=== PATIENT | male | born 1975 | race Hispanic/Latino ===

== ENCOUNTER 2018-07-09 12:40 | Emergency (ER) | payer MEDICAID, OTHER ==
[2018-07-09 12:55] VITALS: RESP 20; TEMP 97.5; O2SAT 97
[2018-07-09 13:23] VITALS: BP 100/56; PULSE 64
--- NOTE | 2018-07-09 13:30 | C.PDOC ---
History Of Present Illness 43 y/o male pt presents to the ER c/o anterior chest wall discomfort. Pt had a hx of narcotic abuse but claims he no longer using narcotics. Pt denies heavy lifting and falls. Time Seen by Provider: 07/09/18 13:18 Chief Complaint (Nursing): Chest Pain History Per: Patient History/Exam Limitations: no limitations Onset/Duration Of Symptoms: Days Current Symptoms Are (Timing): Still Present Past Medical History Reviewed: Historical Data, Nursing Documentation, Vital Signs Vital Signs: Last Vital Signs Temp 97.5 F L 07/09/18 12:51 Pulse 64 07/09/18 13:10 Resp 20 07/09/18 12:51 BP 100/56 L 07/09/18 13:10 Pulse Ox 97 07/09/18 12:51 - Medical History PMH: Depression, Post Traumatic Stress Disorder - [facility] Procedures DETOXIFICATION SERVICES FOR SUBSTANCE ABUSE TREATMENT (10/21/15) GROUP SYSTEM ADMINISTRATION ADVISOR FOR SUBSTANCE ABUSE TREATMENT, PSYCHOEDUCATION (10/21/15) Family History: States: Unknown Family Hx - Social History Hx Tobacco Use: Yes Hx Alcohol Use: No Hx Substance Use: Yes - Immunization History Hx Tetanus Toxoid Vaccination: No Hx Influenza Vaccination: No Hx Pneumococcal Vaccination: No Review Of Systems Except As Marked, All Systems Reviewed And Found Negative. Constitutional: Negative for: Other (heavy lifting or fall ) Cardiovascular: Positive for: Other (anterior chest wall discomfort ) Physical Exam - Physical Exam Appears: Non-toxic, No Acute Distress Skin: Warm, Dry Head: Normacephalic Eye(s): bilateral: Normal Inspection Nose: Normal Oral Mucosa: Moist Throat: Normal Chest: Symmetrical, No Deformity, Tenderness (digitally reproducible discomfort in b/l superior parasternal ) Cardiovascular: Rhythm Regular, No Murmur Respiratory: Normal Breath Sounds, No Rales, No Rhonchi, No Wheezing Gastrointestinal/Abdominal: Soft, No Tenderness Neurological/Psych: Oriented x3, Normal Speech, Normal Cognition ED Course And Treatment ECG: Interpreted By Me ECG Rhythm: Sinus Rhythm ECG Interpretation: Normal Rate From EC O2 Sat by Pulse Oximetry: 97 (RA) Pulse Ox Interpretation: Normal Medical Decision Making Medical Decision Making: Plans: -- EKG -- ibuprofen digitally and positionally reproducable @ b/l parasternal boarder normal hear/lung normal VS c/w costochondritis Disposition Doctor Will See Patient In The: Office Counseled Patient/Family Regarding: Studies Performed, Diagnosis - Disposition Referrals: [facility] [Outside] [facility] [Outside] [facility] [Outside] Disposition: HOME/ ROUTINE Disposition Time: 13:30 Condition: GOOD Additional Instructions: motrin 400-600 every 6 hours as needed for anterior chest wall pain ice packs to the area 1/2 hour per hour as needed no heavy lifting for 1 week Instructions: Costochondritis Forms: [facility] (Scottish) - Clinical Impression Clinical Impression: Chest wall discomfort - Scribe Statement The provider has reviewed the documentation as recorded by the Scribe Rice Do Provider Attestation: All medical record entries made by the Scribe were at my direction and perso jorge dictated by me. I have reviewed the chart and agree that the record accurately reflects my personal performance of the history, physical exam, medical decision making, and the department course for this patient. I have also personally directed, reviewed, and agree with the discharge instructions and disposition.
== END 2018-07-09 13:50 | disposition home or self-care (01) ==
LOC: C.ER 12:40
DX: R07.89 Other chest pain (principal); Z72.0 Tobacco use

== ENCOUNTER 2018-07-28 00:47 | Inpatient (IN) | payer MEDICAID ==
--- NOTE | 2018-07-28 01:49 | C.PDOC ---
History Of Present Illness Patient states that he stopped his meds about 3 weeks ago. He tried to kill himself by hanging himself unde a pipe in the basement, but the pipe broke. the upstairs neighbor heard the noise and water and found him and calld ems. Pt states that he was also clean of drugs for 2 years and 11 days , but relapsed and took 2 percocets . Pleasant, cooperative Time Seen by Provider: 07/28/18 01:49 Chief Complaint (Nursing): Psychiatric Evaluation History Per: Patient History/Exam Limitations: no limitations Onset/Duration Of Symptoms: Hrs Current Symptoms Are (Timing): Still Present Suicide/Self Injury Attempted (Context): Other (attempting to hang himself) Modifying Factor(s): None Severity: Severe Pain Scale Rating Of: 10 Associated Symptoms: Suicidal Plan Involuntary Hold By: None Recent travel outside of the [place]: No Additional History Per: Patient Past Medical History Reviewed: Historical Data, Nursing Documentation, Vital Signs Vital Signs: Last Vital Signs Temp 97.6 F 07/28/18 01:26 Pulse 90 07/28/18 01:26 Resp 18 07/28/18 01:26 BP 111/72 07/28/18 01:26 Pulse Ox 96 07/28/18 01:26 - Medical History PMH: Depression, Post Traumatic Stress Disorder Denies: HIV, HTN, Chronic Kidney Disease, Seizures, Sexually Transmitted Disease - [facility] Procedures DETOXIFICATION SERVICES FOR SUBSTANCE ABUSE TREATMENT (10/21/15) GROUP FORESTRY AIDE FOR SUBSTANCE ABUSE TREATMENT, PSYCHOEDUCATION (10/21/15) Family History: States: No Known Family Hx - Social History Hx Tobacco Use: Yes Hx Alcohol Use: No Hx Substance Use: Yes - Immunization History Hx Tetanus Toxoid Vaccination: No Hx Influenza Vaccination: No Hx Pneumococcal Vaccination: No Review Of Systems Constitutional: Negative for: Fever, Chills Eyes: Negative for: Redness ENT: Negative for: Throat Pain Cardiovascular: Negative for: Chest Pain Respiratory: Negative for: Shortness of Breath Gastrointestinal: Negative for: Nausea, Vomiting, Abdominal Pain Genitourinary: Negative for: Dysuria Musculoskeletal: Negative for: Back Pain Skin: Negative for: Rash Neurological: Negative for: Weakness Psych: Positive for: Anxiety, Depression, Suicidal ideation Physical Exam - Physical Exam Appears: Non-toxic Skin: Warm, Dry Head: Normacephalic Eye(s): bilateral: Normal Inspection Oral Mucosa: Moist Tongue: Normal Appearing Lips: Normal Appearing Throat: No Erythema, No Exudate, No Drooling Neck: Trachea Midline, No Midline Cervical Tenderness, No Paracervical Tenderness, No Step Off Deformity, Supple Chest: Symmetrical Cardiovascular: Rhythm Regular Respiratory: No Rales, No Rhonchi, No Wheezing Gastrointestinal/Abdominal: Soft, No Tenderness, No Distention, No Guarding Back: No CVA Tenderness Extremity: No Tenderness Extremity: Bilateral: Atraumatic Neurological/Psych: Oriented x3 Gait: Steady ED Course And Treatment - Laboratory Results Result Diagrams: 07/28/18 02:22 03 02:22 O2 Sat by Pulse Oximetry: 96 [address]position Discuss[address] Dr.: Tano Ag Comment: accepted the pt on his service and took over the care at 4:18 AM Doctor Will See Patient In The: Hospital Counseled Patient/Family Regarding: Studies Performed, Diagnosis - Disposition Disposition: HOSPITALIZED Disposition Time: 01:49 Condition: FAIR Forms: [facility] ([place] Citizen) - POA Present On Arrival: None - Clinical Impression Clinical Impression: Major depression, Cocaine abuse, Opioid use disorder Decision To Admit - Pt Status Changed To: Hospital Disposition Of: Inpatient - Admit Certification Admit to Inpatient:: After my assessment, the patient will require hospitalization for at least two midnights. This is because of the severity of symptoms shown, intensity of services needed, and/or the medical risk in this patient being treated as an outpatient. - InPatient: Physician Admission Certification: I certify that this patient requires 2 or more midnights of care for the following reason:: After my assessment, the patient will require hospitalization for at least two midnights. This is because of the severity of symptoms shown, intensity of services needed, and/or the medical risk in this patient being treated as an outpatient. - . Bed Request Type: Psychiatry Admitting Physician: Tano Ag Patient Diagnosis: Major depression, Cocaine abuse, Opioid use disorder
[2018-07-28 02:41] LABS: BARBITURATES, UR NEGATIVE (NEGATIVE); BENZODIAZEPINES, UR NEGATIVE (NEGATIVE); PHENCYCLIDINE, UR NEGATIVE (NEGATIVE)
[2018-07-28 02:44] LABS: ALB/GLOB RATIO 1.6 (1.0-2.1); ALBUMIN 4.4 g/dL (3.5-5.0); ALT/SGPT 11 U/L (21-72); AST/SGOT 34 U/L (17-59); BLOOD UREA NITROGEN 12 mg/dL (9-20); CALCIUM 9.6 mg/dl (8.6-10.4); GFR NON-AFRICAN AMERICAN > 60; GRANULAR CAST 64 /lpf (0-1); URINE BACTERIA RARE (<OCC); URINE BILIRUBIN NEGATIVE (NEGATIVE); URINE BLOOD NEGATIVE (NEGATIVE); URINE CLARITY Turbid (Clear); URINE COLOR Amber (YELLOW); URINE GLUCOSE (UA) NORMAL (Normal); URINE HYALINE CAST >20 /lpf (0-2); URINE LEUKOCYTE ESTERASE NEG Leu/uL (Negative); URINE PROTEIN 1+ mg/dL (NEGATIVE)
[2018-07-28 02:48] LABS: BASO # 0.1 K/uL (0.0-0.2); BASO % 0.5 % (0.0-2.0); EOS % 0.2 % (0.0-4.0); HEMOGLOBIN 15.1 g/dL (12.0-18.0); LYMPH # 2.1 K/uL (1.0-4.3); LYMPH % 19.5 % (20.0-40.0); MEAN CELL VOLUME 87.9 fL (80.0-94.0); MEAN CORPUSCULAR HEMOGLOBIN 29.9 pg (27.0-31.0); MEAN PLATELET VOLUME 10.5 fL (7.2-11.7); MONO # 0.9 K/uL (0.0-0.8); MONO % 8.6 % (0.0-10.0); NEUT # 7.6 K/uL (1.8-7.0); NEUT % 71.2 % (50.0-75.0); NRBC % 0.1 % (0.0-2.0); OPIATES, UR POSITIVE (NEGATIVE); RBC 5.05 Mil/uL (4.40-5.90); RED CELL DISTRIBUTION WIDTH 13.7 % (11.5-14.5); WHITE BLOOD COUNT 10.6 K/uL (4.8-10.8)
--- NOTE | 2018-07-28 05:35 | PCM.BM ---
<Doyle Marinelli - Last Filed: 07/28/18 05:32> Treatment Plan Problems - Problems identified on initial assessmt Hopelessness/Helplessness Date Initiated: 07/28/18 Time Initiated: 04:30 Assessment reference: NA Status: Active Ineffective Coping Date Initiated: 07/28/18 Time Initiated: 04:30 Assessment reference: NA Status: Active Treatment assets and liabiliti Patient Assests: adapts well, cooperative, ADL independent, physically healthy, good support system, negotiates basic needs, cognitively intact Patient Liabilities: substance abuse - Milieu Protocol Maintain good personal hygiene: daily Encourage regular showers, daily Remind patient to perform daily oral care, daily Assist patient to perform ADL's Conduct patient checks and document Observation sheet: Q15 minutes Maintain personal safety: every shift Educate patient to report safety concerns to staff, every shift Monitor environment for contraband/sharps Medication safety: Monitor for expected outcome, potential side effects: every shift, Assess barriers to learning: every shift, Assess readiness for medication education: every shift <Jenny Lee - Last Filed: 07/28/18 15:56> Family Contact Family involvement: Patient does not wish Family/SO involvement Family contact: Patient declines to allow family contact at present - Goals for Treatment Patient goals for treatment: "I want go back to my IOP." Discharge/Continuing Care - Education Needs Education Needs: Patient Medication, Patient Diagnosis/Disease Process, Patient Coping Skills, Patient Placement options, Patient Community resources - Discharge Discharge Criteria: Free of Suicidal thoughts, Normal sleep pattern, Ability to care for self, No longer exhibiting s/s of withdrawal, Reduction of target symptoms Discharge to:: Home - Treatment Team Participation Discussed with Family/SO: No Was Patient/Family/SO present at Treatment Team Meeting: Yes
[2018-07-28] MEDS ORDERED: Aluminum Hydroxide/Magnesium Hydroxide Susp (30 mL) PO PRN (15:29)
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
[2018-07-29 08:40] VITALS: O2SAT 96
[2018-07-29] MEDS ORDERED: Influenza Vaccine 60 mcg/0.5 mL SYR (4YR UP) IM ONE (10:00)
--- NOTE | 2018-07-29 18:29 | PCM.PYCHPN ---
Psychiatric Progress Note - Psychiatric Progress Note Patient seen today, length of contact: 15 minutes Patient Chief Complaint: I am feeling a little better. Problems Identified/Issues Discussed: Patient seen, chart reviewed, case discussed with the staff. Issues related to illness and treatment were discussed with the patient and staff. Reported compliance with treatment with no adverse effect. Tolerating treatment very well. Patient reported feeling little better, he denied any suicidal or homicidal ideations. Mood reported as still depressed but less than before. Affect appropriate. Aftercare discussed with the patient. Patient denied any delusions, auditory or visual hallucinations, no suicidal ideations or homicidal ideations at the time of the evaluation. Medical Problems: None reported Diagnostic Results: Reviewed DSM 5 Symptoms Update: Some improvement with treatment Medication Change: No Medical Record Reviewed: Yes Mental Status Examination - Cognitive Function Orientation: Person, Place, Situation, Time Memory: Intact Attention: WNL Concentration: WNL Association: [facility] Fund of Knowledge: [facility] Decription of patient's judgement and insights: Fair - Mood Mood: Depressed - Affect Affect: Depressed - Speech Speech: Appropriate - Formal Thought Process Formal Thought Process: No Impairment Psychotic Thoughts and Behaviors: None - Suicidal Ideation Suicidal Ideation: No - Homicidal Ideation Homicidal Ideation: No Goal/Treatment Plan - Goal/Treatment Plan Need for Continued Stay: Remain at risks for inpatient hospitalization, Discharge may exacerbated symptoms, Severe functional impairment Progress Toward Problem(s) and Goals/Treatment Plan: Patient education. Supportive therapy. CBT for relapse prevention. [facility] for abstinence. Will DC one-to-one observation for safety. We will move the patient to a room closer to nursing station for close observation. Continue treatment as before. Patient wants to go to [facility] for follow-up care after discharge from the hospital. Estimated Date of D/C: 08/05/18 - Smoking Cessation Smoking Cessation Initiated: No
[2018-07-30] MEDS ORDERED: Pneumococcal 23-Valent Vaccine IM ONE (10:30)
--- NOTE | 2018-07-30 23:47 | PCM.PYCHPN ---
Psychiatric Progress Note - Psychiatric Progress Note Patient seen today, length of contact: 15 minutes Patient Chief Complaint: I am feeling a little better. Problems Identified/Issues Discussed: Patient seen, chart reviewed, case discussed with the staff. Issues related to illness and treatment were discussed with the patient and staff. Reported compliance with treatment with no adverse effect. Tolerating treatment very well. Patient reported feeling little better, he denied any suicidal or homicidal ideations. Mood reported as still depressed but less than before. Affect appropriate. Aftercare discussed with the patient. Patient denied any delusions, auditory or visual hallucinations, no suicidal ideations or homicidal ideations at the time of the evaluation. Medical Problems: None reported Diagnostic Results: Reviewed DSM 5 Symptoms Update: Some improvement with the treatment. Medication Change: No Medical Record Reviewed: Yes Mental Status Examination - Cognitive Function Orientation: Person, Place, Situation, Time Memory: Intact Attention: WNL Concentration: WNL Association: [facility] Fund of Knowledge: [facility] Decription of patient's judgement and insights: Fair - Mood Mood: Depressed - Affect Affect: Depressed - Speech Speech: Appropriate - Formal Thought Process Formal Thought Process: No Impairment Psychotic Thoughts and Behaviors: None - Suicidal Ideation Suicidal Ideation: No - Homicidal Ideation Homicidal Ideation: No Goal/Treatment Plan - Goal/Treatment Plan Need for Continued Stay: Remain at risks for inpatient hospitalization, Discharge may exacerbated symptoms, Severe functional impairment Progress Toward Problem(s) and Goals/Treatment Plan: Patient education. Supportive therapy. CBT for relapse prevention. [place] for abstinence. Continue treatment as before. Patient wants to go to [facility] for follow-up care after discharge from the hospital. Estimated Date of D/C: 08/05/18 - Smoking Cessation Smoking Cessation Initiated: No
--- NOTE | 2018-07-31 23:04 | PCM.PYCHPN ---
Psychiatric Progress Note - Psychiatric Progress Note Patient seen today, length of contact: 18 minutes Patient Chief Complaint: "I am still having withdrawals" Problems Identified/Issues Discussed: Patient was seen and chart was reviewed. Case was discussed with treatment team. Issues related to the illness and treatment were discussed with the patient, and issues related to illness and treatment were discussed with the patient and staff. Patient reported compliance with treatment and no adverse effects from the medications were reported. Patient is tolerating treatment well at this time. Patient still reports some withdrawal symptoms such as body aches, swea ting, nausea, decreased sleep. Patient reports mood as improved, affect is congruent with mood. Aftercare was discussed with patient and he verbalized understanding. Patient denies any delusions, auditory/visual hallucinations, or perceptual disturbances. Patient also denies any suicidal or homicidal ideation/plan/intent at this time. Medication Change: Yes (Give one time Methadone 5 mg for opiates withdrawals) Medical Record Reviewed: Yes Mental Status Examination - Cognitive Function Orientation: Person, Place, Situation, Time Memory: Intact Attention: WNL Concentration: WNL Association: WNL Fund of Knowledge: WNL - Mood Mood: Depressed - Affect Affect: Constricted, Depressed - Speech Speech: Appropriate - Formal Thought Process Formal Thought Process: No Impairment - Suicidal Ideation Suicidal Ideation: No - Homicidal Ideation Homicidal Ideation: No Goal/Treatment Plan - Goal/Treatment Plan Need for Continued Stay: Remain at risks for inpatient hospitalization, Discharge may exacerbated symptoms, Severe functional impairment Progress Toward Problem(s) and Goals/Treatment Plan: Continue medications Support and psychoeducation daily Attend groups and activities daily Individual therapy After care planning by HENRY and the team Estimated Date of D/C: 08/05/18
[2018-08-02 06:49] VITALS: BP 93/58; PULSE 73; RESP 20; TEMP 98.6
--- NOTE | 2018-08-02 11:28 | PCM.PYCHDC ---
Mental Status Examination - Mental Status Examination Orientation: Person, Place, Situation, Time Mood: Depressed, Anxious Affect: Constricted Speech: Appropriate Attention: WNL Concentration: WNL Association: WNL Fund of Knowledge: WNL Formal Thought Process: No Impairment Description of patient's judgement and insight: Major depressive disorder recurrent severe without psychotic features. Opioid use disorder severe. Opioid withdrawal. Cocaine use disorder moderate. Suicidal Ideation: No Current Homicidal Ideation?: No Discharge Summary - Discharge Note Reason for Hospitalization: Suicidal thoughts Consultations:: List each consultation separately and include: 1. Reason for request. 2. Findings. 3. Follow-up Summary of Hospital Course include:: 1. Description of specific treatment plan utilized for patients during their course of treatmen. 2. Summarize the time- course for resolution of acute symptoms and/or regressed behaviors. 3. Describe issues identified and worked on during hospitalization. 4. Describe medication utilized. 5. Describe medical problems identified and treated. 6. Reassessment of suicide risk Summary of Hospital Course: The pt was admitted and started on treatment with psychotherapy, support, psychoeducation and medications. All the risks and benefits of medications are discussed and the patient understood and agreed. [place] and CBT used. The pt attended groups and activities, as well as milieu therapy. The pt improved with the treatments provided. After care discussed with the patient. He will go to [facility]. Suicide prevention discussed in detail He will consider suboxone too - Final Diagnosis (DSM 5) Condition upon Discharge: IMPROVED Disposition: HOME/ ROUTINE Follow-up Treatment Plan: Continue below medications after discharge. Follow after care plan as discussed. Use relapse prevention skills Return to ER or call 911 if suicidal, homicidal or symptoms relapse. Stay away from stress, alcohol and drugs. See primary doctor regularly and get labs. Prescriptions/Medication Reconciliation: Gabapentin [Neurontin] 300 mg PO BID #60 cap LORazepam [Ativan] 0.5 mg PO DAILY PRN #20 tab PRN Reason: Anxiety Mirtazapine [Remeron] 15 mg PO HS #30 tab Sertraline [Zoloft] 200 mg PO DAILY #60 tab traZODone [Desyrel] 50 mg PO HS #30 tab
== END 2018-08-02 12:00 | disposition home or self-care (01) | DRG 751 ==
LOC: C.ER 00:47 → C.5E 04:18
PROVIDERS: ADMIT Psychiatry & Neurology Psychiatry; ATTEND Psychiatry & Neurology Psychiatry
PROC: GZ56ZZZ Individual Psychotherapy, Supportive (ICD-10-PCS; principal; 2018-07-28)
PROC: GZ58ZZZ Individual Psychotherapy, Cognitive-Behavioral (ICD-10-PCS; 2018-07-28)
PROC: HZ81ZZZ Medication Management for Substance Abuse Treatment, Methadone Maintenance (ICD-10-PCS; 2018-07-28)
PROC: GZHZZZZ Group Psychotherapy (ICD-10-PCS; 2018-07-28)
DX: F33.2 Major depressive disorder, recurrent severe without psychotic features (principal); F14.20 Cocaine dependence, uncomplicated; R45.851 Suicidal ideations; F11.23 Opioid dependence with withdrawal; F17.210 Nicotine dependence, cigarettes, uncomplicated; F43.10 Post-traumatic stress disorder, unspecified; Z65.3 Problems related to other legal circumstances; Z91.19 Patient's noncompliance with other medical treatment and regimen

== ENCOUNTER 2018-08-13 02:02 | Inpatient (IN) | payer MEDICAID ==
--- NOTE | 2018-08-13 02:46 | C.PDOC ---
History Of Present Illness 43 year old male presents requesting detox from heroin, last use was earlier today. Denies SI or HI. Time Seen by Provider: 08/13/18 02:22 Chief Complaint (Nursing): Substance Abuse History Per: Patient History/Exam Limitations: no limitations Onset/Duration Of Symptoms: Hrs Current Symptoms Are (Timing): Still Present Modifying Factor(s): Other (Heroin) Recent travel outside of the [place]: No Past Medical History Reviewed: Historical Data, Nursing Documentation, Vital Signs Vital Signs: Last Vital Signs Temp 97.6 F 08/13/18 02:15 Pulse 78 08/13/18 02:15 Resp BP 104/65 08/13/18 02:15 Pulse Ox 95 08/13/18 02:15 - Medical History PMH: Depression, Post Traumatic Stress Disorder Denies: Diabetes, Hepatitis, HIV, HTN, Chronic Kidney Disease, Seizures, Se xually Transmitted Disease - [facility] Procedures DETOXIFICATION SERVICES FOR SUBSTANCE ABUSE TREATMENT (10/21/15) GROUP LINE UP WORKER FOR SUBSTANCE ABUSE TREATMENT, PSYCHOEDUCATION (10/21/15) GROUP PSYCHOTHERAPY (07/28/18) INDIVIDUAL PSYCHOTHERAPY, COGNITIVE-BEHAVIORAL (07/28/18) INDIVIDUAL PSYCHOTHERAPY, SUPPORTIVE (07/28/18) MEDS MGMT FOR SUBSTANCE ABUSE TREATMENT, METHADONE MAINT (07/28/18) Family History: States: Unknown Family Hx - Social History Hx Tobacco Use: Yes Hx Alcohol Use: No Hx Substance Use: Yes - Immunization History Hx Tetanus Toxoid Vaccination: No Hx Influenza Vaccination: No Hx Pneumococcal Vaccination: No Review Of Systems Except As Marked, All Systems Reviewed And Found Negative. Constitutional: Negative for: Fever Cardiovascular: Negative for: Chest Pain Physical Exam - Physical Exam Additional Physical Exam Comments: Constitutional: No acute distress. Head: Normocephalic. Atraumatic. Eyes: PERRL. ENT: Moist mucous membranes. Neck: Supple. Cardiovascular: Regular rate. Radial pulse 2+ bilaterally. Chest: No tenderness. Respiratory: Clear to auscultation bilaterally. GI: Soft. Nontender. Nondistended. Back: No CVA tenderness. Musculoskeletal: No tenderness or swelling of extremities. Skin: No rash. Neurologic: Alert, no focal deficit. ED Course And Treatment - Laboratory Results Result Diagrams: 08/13/18 03:58 08/13/18 03:58 O2 Sat by Pulse Oximetry: 95 (Room air) Pulse Ox Interpretation: Normal Disposition - Disposition Disposition: HOSPITALIZED Disposition Time: 04:28 Condition: FAIR Forms: [facility] (Zambian) - Clinical Impression Clinical Impression: Opioid use disorder, severe, dependence, Major depressive disorder - Scribe Statement The provider has reviewed the documentation as recorded by the Scribgualberto Ham All medical record entries made by the Scribe were at my direction and personally dictated by me. I have reviewed the chart and agree that the record accurately reflects my personal performance of the history, physical exam, medical decision making, and the department course for this patient. I have also personally directed, reviewed, and agree with the discharge instructions and disposition.
[2018-08-13 03:43] LABS: GRANULAR CAST 13 /lpf (0-1); URINE BILIRUBIN NEGATIVE (NEGATIVE); URINE BLOOD NEGATIVE (NEGATIVE); URINE CLARITY Hazy (Clear); URINE COLOR Amber (YELLOW); URINE GLUCOSE (UA) NORMAL (Normal); URINE LEUKOCYTE ESTERASE NEG Leu/uL (Negative); URINE PROTEIN 1+ mg/dL (NEGATIVE)
[2018-08-13 03:53] LABS: BARBITURATES, UR NEGATIVE (NEGATIVE); BENZODIAZEPINES, UR NEGATIVE (NEGATIVE); PHENCYCLIDINE, UR NEGATIVE (NEGATIVE)
[2018-08-13 03:58] LABS: OPIATES, UR POSITIVE (NEGATIVE)
[2018-08-13 04:02] LABS: BASO # 0.1 K/uL (0.0-0.2); BASO % 0.5 % (0.0-2.0); EOS # 0.1 K/uL (0.0-0.7); EOS % 0.9 % (0.0-4.0); HEMOGLOBIN 14.7 g/dL (12.0-18.0); LYMPH # 2.5 K/uL (1.0-4.3); LYMPH % 23.1 % (20.0-40.0); MEAN CELL VOLUME 85.8 fL (80.0-94.0); MEAN CORPUSCULAR HEMOGLOBIN 29.9 pg (27.0-31.0); MEAN CORPUSCULAR HGB CONC 34.8 g/dL (33.0-37.0); MEAN PLATELET VOLUME 8.9 fL (7.2-11.7); MONO # 0.8 K/uL (0.0-0.8); MONO % 7.4 % (0.0-10.0); NEUT # 7.3 K/uL (1.8-7.0); NEUT % 68.1 % (50.0-75.0); RBC 4.92 Mil/uL (4.40-5.90); RED CELL DISTRIBUTION WIDTH 13.5 % (11.5-14.5); WHITE BLOOD COUNT 10.8 K/uL (4.8-10.8)
[2018-08-13 04:22] LABS: ALB/GLOB RATIO 1.8 (1.0-2.1); ALBUMIN 4.6 g/dL (3.5-5.0); ALT/SGPT 18 U/L (21-72); AST/SGOT 20 U/L (17-59); BLOOD UREA NITROGEN 14 mg/dL (9-20); CALCIUM 9.5 mg/dl (8.6-10.4); GFR NON-AFRICAN AMERICAN > 60
--- NOTE | 2018-08-13 04:57 | PCM.BM ---
<Yvonne Lorenzo - Last Filed: 08/13/18 04:54> Treatment Plan Problems - Problems identified on initial assessmt Low motivation to Change Date Initiated: 08/13/18 Time Initiated: 04:55 Assessment reference: AT Status: Active Treatment assets and liabiliti Patient Assests: ADL independent Patient Liabilities: substance abuse - Milieu Protocol Maintain good personal hygiene: daily Encourage regular showers, daily Remind patient to perform daily oral care, daily Assist patient to perform ADL's Conduct patient checks and document Observation sheet: Q15 minutes Maintain personal safety: every shift Educate patient to report safety concerns to staff, every shift Monitor environment for contraband/sharps Medication safety: Monitor for expected outcome, potential side effects: every shift, Assess barriers to learning: every shift, Assess readiness for medication education: every shift <Ladonna Palafox - Last Filed: 08/13/18 12:37> - Diagnosis (1) Major depression Status: Acute Interventions: 08/13/18 12:36 * Assess/adjust medications daily and /or as needed * See patient on an individual basis 7x/week to assess symptoms of depression * Monitor for side effects & effectiveness of medications * (2) Opioid use disorder, severe, dependence Status: Acute Interventions: 08/13/18 12:37 * Assess 7x/week regarding severity of withdrawal * Educate regarding risks, benefits, side effects and alternatives of medications * Use Motivational Interviewing for abstinence * Use CBT for relapse prevention * Medication management for withdrawal symptoms * Encourage medication assisted treatment *
[2018-08-13] MEDS ORDERED: Aluminum Hydroxide/Magnesium Hydroxide Susp (30 mL) PO PRN (12:33)
[2018-08-13] MEDS ORDERED: Buprenorphine Hydrochloride 2 mg SL ONE ×3 (12:33→21:41)
--- NOTE | 2018-08-13 12:36 | PCM.PSYCH ---
Initial Psychiatric Evaluation - Initial Psychiatric Evaluation Type of Admission: Voluntary Legal Status: Capacity Chief Complaint (in patient's own words): "I am withdrawing already" History of Present Illness and Precipitating Events: Pt is seen, chart reviewed and case discussed. He is known from an inpatient psych admission. 43 y/o male with 1 child. His child lives with the mother. 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 He currently lives alone in an apartment. He is currently withdrawing from heroin. COWS>10, likely 12-14 He uses 10 bags ( IV ) per day. States that he started using heroin for 5 years ago, but was sober and in a suboxone program for the last 3 years. He tried to come off the suboxone on his own early this year. Two weeks after he stopped taking the suboxone he relapsed. After relapsing, he attempted suicide by hanging and he was admitted into psych after the SI attempt. States that he began using again after leaving psych again. Overall, he has been feeling stressed as of late due to financial problems. He last used yesterday evening at 10 PM. Pt denies history of prior OD, but states that he came in last night because he felt that he was about to overdose intentionally. Denies current suicidal plan or urge but feels hopeless and depressed, has had SI on admission he adds. Denies using Xanax, cocaine, and smoking. Denies alcohol abuse. Psych HX: Depression, Anxiety Fam Psych Hx: Denies Medical Hx: Denies Medication: Zoloft, Remeron, trazadone Current Medications: Active Medications Generic Name Dose Route Start Last Admin Trade Name Inder PRN Reason Stop Dose Admin Al Hydrox/Mg Hydrox/Simethicone 30 ml 08/13/18 12:33 Maalox 30 Ml PO TID PRN Indigestion / Heartburn Buprenorphine HCl 2 mg 08/13/18 12:33 Subutex SL 08/13/18 12:34 ONCE ONE Buprenorphine HCl 6 mg 08/13/18 13:33 Subutex SL 08/13/18 13:34 ONCE ONE Clonidine HCl 0.1 mg 08/13/18 12:33 Catapres PO Q4 PRN COWS Score More or Equal to 5 Ibuprofen 600 mg 08/13/18 12:33 Motrin Tab PO Q6 PRN Pain, moderate (4-7) Loperamide HCl 2 mg 08/13/18 12:33 Imodium PO Q8 PRN Diarrhea Ondansetron HCl 4 mg 08/13/18 12:33 Zofran Tab PO Q8 PRN Nausea/Vomiting Pneumococcal Polyvalent Vaccine 0.5 ml 08/16/18 10:00 Pneumovax 23 Vaccine IM 08/16/18 10:01 .ONCE ONE Past Psychiatric History - Past Psychiatric History Previous Treatment History: Inpatient Pertinent Medical Hx (Current Medical&Sleep Prob, Allergies): Allergies Allergy/AdvReac Type Severity Reaction Status Date / Time No Known Allergies Allergy Verified 07/28/18 01:34 Sertraline [Zoloft] 200 mg PO BID 10/21/15 Mirtazapine [Remeron] 15 mg PO HS #30 tab 11/17/15 Gabapentin [Neurontin] 300 mg PO BID #60 cap 08/02/18 LORazepam [Ativan] 0.5 mg PO DAILY PRN #20 tab 08/02/18 Mirtazapine [Remeron] 15 mg PO HS #30 tab 08/02/18 Sertraline [Zoloft] 200 mg PO DAILY #60 tab 08/02/18 traZODone [Desyrel] 50 mg PO HS #30 tab 08/02/18 Review of Systems - Psychiatric Psychiatric: Abnormal Sleep Pattern, Anhedonia, Anxiety, Change in Appetite, Depression, Difficulty Concentrating, Irritability, Mood Swings. absent: Hallucinations, Homicidal Ideation, Paranoia, Suicidal Ideation Mental Status Examination - Personal Presentation Personal Presentation: Looks older than stated age - Affect Affect: Constricted - Motor Activity Motor Activity: Calm - Reliability in Providing Information Reliability in Providing Information: Good - Speech Speech: Organized - Mood Mood: Depressed, Anxious - Formal Thought Process Formal Thought Process: No Impairment - Cognitive Functions Orientation: Person, Place, Situation, Time Sensorium: Alert Attention/Concentration: Attentive Estimate of Intelligence: Average Judgement: Intact, as evidence by: Insight regarding need for hospitalization Memory: Recent intact, as evidence by: Ability to recall events of the day, Remote intact, as evidenced by: Abilit to recall sig. life events - Risk Risk: Withdrawal, Diminished functioning - Strength & Assets Inventory Strength & Assets Inventory: Employment history, Cooperative - Limitations Limitations: Other DSM 5 DX - DSM 5 DSM 5 Diagnosis: Opioid withdrawal opioid use d/o - severe Major depresive d/o - severe - Recommended/Plan of Treatment Treatment Recommendations and Plan of Treatment: Taper with subutex Remeron and zoloft for depression Gabapentin for augmentation if needed As needed medications All risks, benefits and alternatives of the meds discussed, and the pt agreed and understood. Attend groups and activities Supportive therapy and psychoeducation [place] for abstinence CBT for relapse prevention Encourage MAT Refer to rehab or IOP, and self-help groups Teach healthy lifestyle methods, i.e. diet, exercise, meditation Smoking cessation with [place] Nicotine patch if needed 34 min Projected ELOS: 3-4 days Prognosis: good - Smoking Cessation Smoking Cessation Initiated: Yes
[2018-08-14 05:33] VITALS: RESP 18
--- NOTE | 2018-08-14 11:11 | PCM.PYCHPN ---
Psychiatric Progress Note - Psychiatric Progress Note Patient seen today, length of contact: 15 min Patient Chief Complaint: I am withdrawing. Problems Identified/Issues Discussed: Patient seen and evaluated, chart reviewed and discussed with the nurse. Patient reports some improvement in the withdrawal symptoms but still reports anxiety, headaches, cramps, joint pains and sweating. He reports anxiety but denies any feelings of hopelessness or helplessness. He denies any denies any manic or psychotic symptom. He denies any suicidal ideation or homicidal ideation. He is taking medications but denies any effects. Symptoms are improving gradually but he needs to stay longer for further stabilization. Supportive therapy and psychoeducation were given Medication Change: Yes Medical Record Reviewed: Yes Mental Status Examination - Cognitive Function Orientation: Person, Place, Situation, Time Memory: Intact Attention: WNL Concentration: Poor Association: WNL Fund of Knowledge: Poor - Mood Mood: Depressed, Anxious - Affect Affect: Constricted - Speech Speech: Soft - Formal Thought Process Formal Thought Process: No Impairment - Suicidal Ideation Suicidal Ideation: No - Homicidal Ideation Homicidal Ideation: No Goal/Treatment Plan - Goal/Treatment Plan Need for Continued Stay: Remain at risks for inpatient hospitalization Progress Toward Problem(s) and Goals/Treatment Plan: Opioid withdrawal opioid use d/o - severe Major depresive d/o - severe Taper with subutex Remeron and zoloft for depression Gabapentin for augmentation if needed As needed medications All risks, benefits and alternatives of the meds discussed, and the pt agreed and understood. Attend groups and activities Supportive therapy and psychoeducation [place] for abstinence CBT for relapse prevention Encourage MAT Refer to rehab or IOP, and self-help groups Teach healthy lifestyle methods, i.e. diet, exercise, meditation Smoking cessation with [place] Nicotine patch if needed - Smoking Cessation Smoking Cessation Initiated: No
[2018-08-14] MEDS ORDERED: Buprenorphine Hydrochloride 2 mg SL ONE (12:39)
[2018-08-15] MEDS: Buprenorphine Hydrochloride 2 mg SL SCH (09:37)
[2018-08-15] MEDS ORDERED: Buprenorphine Hydrochloride 2 mg SL SCH (12:00)
[2018-08-15] MEDS ORDERED: Magnesium Hydroxide Susp 30 ml UD PO ONE (18:27)
[2018-08-16] MEDS: Buprenorphine Hydrochloride 2 mg SL SCH (09:05)
--- NOTE | 2018-08-16 09:49 | PCM.PYCHDC ---
Mental Status Examination - Mental Status Examination Orientation: Person Discharge Summary - Discharge Note Consultations:: List each consultation separately and include: 1. Reason for request. 2. Findings. 3. Follow-up Summary of Hospital Course include:: 1. Description of specific treatment plan utilized for patients during their course of treatmen. 2. Summarize the time- course for resolution of acute symptoms and/or regressed behaviors. 3. Describe issues identified and worked on during hospitalization. 4. Describe medication utilized. 5. Describe medical problems identified and treated. 6. Reassessment of suicide risk Summary of Hospital Course: Pt is seen, chart reviewed and case discussed. He is known from an inpatient psych admission. 43 y/o male with 1 child. His child lives with the mother. 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 He currently lives alone in an apartment. He is currently withdrawing from heroin. COWS>10, likely 12-14 He uses 10 bags ( IV ) per day. States that he started using heroin for 5 years ago, but was sober and in a suboxone program for the last 3 years. He tried to come off the suboxone on his own early this year. Two weeks after he stopped taking the suboxone he relapsed. After relapsing, he attempted suicide by hanging and he was admitted into psych after the SI attempt. States that he began using again after leaving psych again. Overall, he has been feeling stressed as of late due to financial problems. He last used yesterday evening at 10 PM. Pt denies history of prior OD, but states that he came in last night because he felt that he was about to overdose intentionally. Denies current suicidal plan or urge but feels hopeless and depressed, has had SI on admission he adds. Denies using Xanax, cocaine, and smoking. Denies alcohol abuse. Psych HX: Depression, Anxiety Fam Psych Hx: Denies Medical Hx: Denies Medication: Zoloft, Remeron, trazadone He will go to [facility]. - Diagnosis (1) Major depression Current Visit: Yes Status: Acute (2) Opioid use disorder, severe, dependence Current Visit: Yes Status: Acute - Final Diagnosis (DSM 5) Condition upon Discharge: FAIR Disposition: HOME/ ROUTINE Follow-up Treatment Plan: Taper with subutex Remeron and zoloft for depression Gabapentin for augmentation if needed As needed medications All risks, benefits and alternatives of the meds discussed, and the pt agreed and understood. Attend groups and activities Supportive therapy and psychoeducation [place] for abstinence CBT for relapse prevention Encourage MAT Refer to rehab or IOP, and self-help groups Teach healthy lifestyle methods, i.e. diet, exercise, meditation Smoking cessation with [place] Nicotine patch if needed 34 min Prescriptions/Medication Reconciliation: Gabapentin [Neurontin] 300 mg PO BID #60 cap Mirtazapine [Remeron] 15 mg PO HS #30 tab Sertraline [Zoloft] 50 mg PO DAILY #30 tab traZODone [Desyrel] 50 mg PO HS #30 tab valACYclovir [Valtrex] 500 mg PO BID #60 tab
[2018-08-16] MEDS ORDERED: Pneumococcal 23-Valent Vaccine IM ONE (10:00)
[2018-08-16 10:21] VITALS: BP 100/68; PULSE 65; TEMP 97.5; O2SAT 95
== END 2018-08-16 09:30 | disposition home or self-care (01) | DRG 773 ==
LOC: C.ER 02:02 → C.7D 04:42
PROVIDERS: ADMIT Psychiatry & Neurology Psychiatry; ATTEND Psychiatry & Neurology Psychiatry
PROC: GZHZZZZ Group Psychotherapy (ICD-10-PCS; principal; 2018-08-13)
PROC: GZ56ZZZ Individual Psychotherapy, Supportive (ICD-10-PCS; 2018-08-13)
DX: F11.23 Opioid dependence with withdrawal (principal); F32.9 Major depressive disorder, single episode, unspecified; F43.10 Post-traumatic stress disorder, unspecified; Z59.9 Problem related to housing and economic circumstances, unspecified; Z87.891 Personal history of nicotine dependence